=== PATIENT | female | born 1990 | race Caucasian/White ===

== ENCOUNTER 2016-12-01 23:19 | Emergency (ER) | payer OTHER ==
[~2016-12-01] VITALS: Ht 157.5 cm; Wt 77.1 kg
[2016-12-02 00:41] VITALS: BP 127/75
--- NOTE | 2016-12-02 01:52 | ED.ADGEN ---
Past Medical History Past Medical History: No Pertinent History Past Surgical History: No Surgical History Alcohol Use: Occasionally Drug Use: None Physician Documentation Physician Documentation I signed up to evaluate this patient, however upon entering the room the patient was nowhere to be found. The patient did not receive a medical screening exam and left the emergency department without being seen. CAN BROWN MD December 02, 2016 01:52
== END 2016-12-02 01:50 | disposition left against medical advice (07) ==
LOC: ER 12-02 00:11
DX: M25.532 Pain in left wrist (principal); F17.200 Nicotine dependence, unspecified, uncomplicated; Z53.21 Procedure and treatment not carried out due to patient leaving prior to being seen by health care provider
CPT/HCPCS: 99281

== ENCOUNTER 2016-12-18 11:25 | Emergency (ER) | payer OTHER ==
[~2016-12-18] VITALS: Ht 157.5 cm; Wt 76.2 kg
[2016-12-18 11:34] VITALS: BP 122/67
--- NOTE | 2016-12-18 11:56 | PHYS DOC ---
Past Medical History Past Medical History: No Pertinent History Past Surgical History: No Surgical History Alcohol Use: Occasionally Drug Use: None Adult General Chief Complaint Chief Complaint: EARACHE/EAR PAIN HPI HPI Patient is a 26 year old female presents to the emergency department with a history of URI last week or so. She states since the URI symptoms have resolved she is now having problems with her left ear. She states she has decreased hearing states it feels foggy. She denies drainage or discharge noted from the ear. She denies fever, chills, nausea or vomiting. Review of Systems Review of Systems Constitutional: Denies fever or chills [] Eyes: Denies change in visual acuity, redness, or eye pain [] HENT: Denies nasal congestion or sore throat. C/o left ear problems Respiratory: Denies cough or shortness of breath [] Cardiovascular: No additional information not addressed in HPI [] GI: Denies abdominal pain, nausea, vomiting, bloody stools or diarrhea [] : Denies dysuria or hematuria [] Musculoskeletal: Denies back pain or joint pain [] Integument: Denies rash or skin lesions [] Neurologic: Denies headache, focal weakness or sensory changes [] Endocrine: Denies polyuria or polydipsia [] Allergies Allergies Allergies Coded Allergies Type Severity Reaction Last Updated Verified No Known Drug Allergies 12/02/16 No Physical Exam Physical Exam Constitutional: Well developed, well nourished, no acute distress, non-toxic appearance. [] HENT: Normocephalic, atraumatic, bilateral external ears normal, oropharynx moist, no oral exudates, nose normal. Bilateral TM clear. Throat with redness noted, no exudate, no erythema noted. Eyes: PERRLA, EOMI, conjunctiva normal, no discharge. [] Neck: Normal range of motion, no tenderness, supple, no stridor. [] Cardiovascular:Heart rate regular rhythm, no murmur [] Lungs & Thorax: Bilateral breath sounds clear to auscultation [] Skin: Warm, dry, no erythema, no rash. [] Back: No tenderness Extremities: No tenderness, no cyanosis, no clubbing, ROM intact, no edema. [] Neurologic: Alert and oriented X 3, normal motor function, normal sensory function, no focal deficits noted. [] Psychologic: Affect normal, judgement normal, mood normal. [] Current Patient Data Vital Signs Vital Signs Date Time Temp Pulse Resp B/P (MAP) Pulse Ox O2 Delivery O2 Flow Rate FiO2 12/18/16 11:34 98.0 78 16 97 Room Air 98.0 EKG EKG [] Radiology/Procedures Radiology/Procedures [] Course & Med Decision Making Course & Med Decision Making Pertinent Labs and Imaging studies reviewed. (See chart for details) Patient was instructed to use Afrin twice a day for the next 3 days. Recommended Zyrtec. Patient will be discharged home in stable condition. Signs and symptoms to return to the emergency department has been provided. Patient agrees with discharge instructions, treatment regimen and followup recommendations. [] Dragon Disclaimer Dragon Disclaimer This electronic medical record was generated, in whole or in part, using a voice recognition dictation system. Departure Departure Impression: Primary Impression: Congestion of left ear Disposition: 01 HOME, SELF-CARE Condition: STABLE Referrals: MARJORIE ABURTO (PCP) Patient Instructions: Otalgia-Brief Additional Instructions: Activity as tolerated Afrin 1 spray to bilateral nares twice a day for THREE days only Zyrtec at night Drink plenty of fluids Followup with primary care provider in 3-5 days Return to emergency department as needed for signs and symptoms that become worse. DIAZ COULTER APRN Dec 18, 2016 11:56
== END 2016-12-18 12:01 | disposition home or self-care (01) ==
LOC: ER 11:25
DX: H93.8X2 Other specified disorders of left ear (principal)
CPT/HCPCS: 99281

== ENCOUNTER 2019-03-01 17:15 | Emergency (ER) | payer OTHER ==
[~2019-03-01] VITALS: Ht 157.5 cm; Wt 71.2 kg
[2019-03-01 17:50] VITALS: BP 153/98
[2019-03-01] MEDS ORDERED: FLUT9.9S NS (18:04)
[2019-03-01] MEDS ORDERED: CETI10TA16 PO (18:04)
--- NOTE | 2019-03-01 18:05 | PHYS DOC ---
Past Medical History Past Medical History: No Pertinent History Past Surgical History: No Surgical History Alcohol Use: Occasionally Drug Use: None Adult General Chief Complaint Chief Complaint: COUGH HPI HPI Patient is a 28 year old female who presents to the emergency room with complaints of a productive cough with chunks of clear sputum produced, and fatigue for the last 4 days. Patient states that her throat feels congested. She currently rates her discomfort a 4 out of 10 on the pain scale, there are no alleviating or exacerbating factors. Patient states she does smoke half a pack to a pack of cigarettes a day. ROS Patient denies any fever, ear pain, body aches, nausea, vomiting, diarrhea, abdominal pain, or back pain. She reports frequent throat clearing. She denies any dysuria, or back pain. All other ROS is neg unless otherwise noted in HPI. Review of Systems Review of Systems See Above Allergies Allergies Allergies Coded Allergies Type Severity Reaction Last Updated Verified No Known Drug Allergies 12/02/16 No Physical Exam Physical Exam See Above Constitutional: Well developed, well nourished, no acute distress, non-toxic appearance. [] HENT: Normocephalic, atraumatic, bilateral external ears normal, bilateral TMs normal, stone appearance of posterior pharynx without erythema, oropharynx moist, no oral exudates, nasal turbinates edematous and erythematous laterally Eyes: PERRLA, EOMI, conjunctiva normal, no discharge. [] Neck: Normal range of motion, no tenderness, supple, no stridor. [] Cardiovascular:Heart rate regular rhythm, no murmur [] Lungs & Thorax: Bilateral breath sounds clear to auscultation [] Skin: Warm, dry, no erythema, no rash. [] Extremities: No cyanosis, no clubbing, ROM intact, no edema. [] Neurologic: Alert and oriented X 3, no focal deficits noted. [] Psychologic: Affect normal, judgement normal, mood normal. [] EKG EKG [] Radiology/Procedures Radiology/Procedures [] Course & Med Decision Making Course & Med Decision Making Pertinent Labs and Imaging studies reviewed. (See chart for details) [] Dragon Disclaimer Dragon Disclaimer This electronic medical record was generated, in whole or in part, using a voice recognition dictation system. Departure Departure Impression: Primary Impression: Allergic rhinitis Disposition: HOME, SELF-CARE Condition: STABLE Referrals: NO PCP (PCP) Patient Instructions: Allergic Rhinitis Additional Instructions: Fill prescription(s) and use as directed. You may take Tylenol or ibuprofen as needed for pain/fever. Increase clear fluids. Avoid triggers such as smoke, fragrance, dust, and pollen. Recommend [id number] cough suppressants as needed for cough. Follow-up with your primary care doctor if symptoms persist and to have your thyroid levels rechecked. Scripts Fluticasone Propionate (Flonase Allergy Relief) 9.9 Ml [place].susp 2 SPRAYS NS DAILY for 30 Days, #1 BOTTLE Prov: GIRISH SANON APRN 03/01/19 Cetirizine Hcl (CETIRIZINE HCL) 10 Mg Tablet 1 TAB PO HS, #30 TAB 0 Refills Prov: GIRISH SANON APRN 03/01/19 Problem Qualifiers Primary Impression: Allergic rhinitis Allergic rhinitis trigger: unspecified Allergic rhinitis seasonality: unspecified Qualified Codes: J30.9 - Allergic rhinitis, unspecified GIRISH SANON APRN Mar 01, 2019 18:05
== END 2019-03-01 18:09 | disposition home or self-care (01) ==
LOC: ER 17:15
DX: J30.9 Allergic rhinitis, unspecified (principal); R53.83 Other fatigue
CPT/HCPCS: 99283

== ENCOUNTER 2019-03-13 17:54 | Emergency (ER) | payer OTHER ==
[~2019-03-13] VITALS: Ht 162.6 cm; Wt 71.2 kg
[~2019-03-13 17:54] MED LIST: CETI10TA16 PO; FLUT9.9S NS
[2019-03-13 17:59] VITALS: BP 122/72
[2019-03-13] MEDS ORDERED: DEXAMETHASONE 4 MG TABLET PO STA (18:21)
[2019-03-13] MEDS ORDERED: AZIT1PAC9 PO (18:33)
--- NOTE | 2019-03-13 18:34 | PHYS DOC ---
Past Medical History Past Medical History: Other Additional Past Medical Histor: hypothroidism during Past Surgical History: No Surgical History Alcohol Use: Occasionally Drug Use: None Adult General Chief Complaint Chief Complaint: COUGH HPI HPI Patient is a 28 year old female who presents with cough, congestion, runny nose, body aches has been ongoing for a week and a half. She states she's been using Flonase and Zyrtec over the last week her last not been helping. Denies any pain or any other symptoms at this time. Review of Systems Review of Systems Constitutional: Denies fever or chills [] Eyes: Denies change in visual acuity, redness, or eye pain [] HENT: Reports nasal congestion and sore throat [] Respiratory: Reports cough Cardiovascular: No additional information not addressed in HPI [] GI: Denies abdominal pain, nausea, vomiting, bloody stools or diarrhea [] : Denies dysuria or hematuria [] Musculoskeletal: Denies back pain or joint pain [] Integument: Denies rash or skin lesions [] Neurologic: Denies headache, focal weakness or sensory changes [] Endocrine: Denies polyuria or polydipsia [] Complete systems were reviewed and found to be within normal limits, except as documented in this note. Current Medications Current Medications Current Medications Medications (Trade) Dose Ordered Sig/Flip Start Time Stop Time Status Last Admin Dose Admin Dexamethasone (Decadron) 10 mg 1X STAT 03/13/19 18:21 03/13/19 18:22 UNV Allergies Allergies Allergies Coded Allergies Type Severity Reaction Last Updated Verified No Known Drug Allergies 12/02/16 No Physical Exam Physical Exam Constitutional: Well developed, well nourished, no acute distress, non-toxic appearance. [] HENT: Normocephalic, atraumatic, bilateral external ears normal, oropharynx moist, no oral exudates, nose normal. [] Eyes: PERRLA, EOMI, conjunctiva normal, no discharge. [] Neck: Normal range of motion, no tenderness, supple, no stridor. [] Cardiovascular:Heart rate regular rhythm, no murmur [] Lungs & Thorax: Bilateral breath sounds clear to auscultation [] Abdomen: Bowel sounds normal, soft, no tenderness, no masses, no pulsatile mass es. [] Skin: Warm, dry, no erythema, no rash. [] Back: No tenderness, no CVA tenderness. [] Extremities: No tenderness, no cyanosis, no clubbing, ROM intact, no edema. [] Neurologic: Alert and oriented X 3, normal motor function, normal sensory function, no focal deficits noted. [] Psychologic: Affect normal, judgement normal, mood normal. [] EKG EKG [] Radiology/Procedures Radiology/Procedures [] Course & Med Decision Making Course & Med Decision Making Pertinent Labs and Imaging studies reviewed. (See chart for details) Will give patient a steroid and since this has been ongoing for a week and a half and getting worse, will give Z-pack. Dragon Disclaimer Dragon Disclaimer This electronic medical record was generated, in whole or in part, using a voice recognition dictation system. Departure Departure Impression: Primary Impression: Upper respiratory infection with cough and congestion Disposition: HOME, SELF-CARE Condition: STABLE Referrals: NO PCP (PCP) Patient Instructions: Upper Respiratory Infection, Adult Additional Instructions: Thank you for visiting [facility]. We appreciate you trusting us with your care. If any additional problems come up don't hesitate to return to visit us. Please follow up with your primary care provider so they can plan additional care if needed and know about the problem that you had. If symptoms worsen come back to the Emergency Department. Any concerning symptoms that start such as chest pain, shortness of air, weakness or numbness on one side of the body, running high fevers or any other concerning symptoms return to the ER. You have been prescribed an antibiotic today to help fight your infection. Please take all of the antibiotic as directed. If after 48 hours the infection is not improving, please return for more care. If the infection worsens, return to ER for additional care. Scripts Azithromycin (AZITHROMYCIN PACKET) 1 Gm Packet 1 PACKET PO ONCE, #1 PACKET Prov: RICHARD JAMIL APRN 03/13/19 RICHARD JAMIL APRN Mar 13, 2019 18:34
== END 2019-03-13 18:40 | disposition home or self-care (01) ==
LOC: ER 17:54
DX: J06.9 Acute upper respiratory infection, unspecified (principal)
CPT/HCPCS: 99283; J8540

== ENCOUNTER 2019-05-07 08:28 | Emergency (ER) | payer OTHER ==
[~2019-05-07] VITALS: Ht 158.8 cm; Wt 71.2 kg
[~2019-05-07 08:28] MED LIST changes: +AZIT1PAC9 PO
[2019-05-07 09:20] VITALS: BP 136/93
[2019-05-07] MEDS ORDERED: IBUPROFEN 400 MG TABLET. PO ONE (09:45)
[2019-05-07] MEDS ORDERED: IBUP-1007 PO (09:59)
[2019-05-07] MEDS ORDERED: LIDO15SO2 MM (09:59)
--- NOTE | 2019-05-07 09:59 | PHYS DOC ---
Past Medical History Past Medical History: Other Additional Past Medical Histor: hypothroidism during Past Surgical History: No Surgical History Alcohol Use: Occasionally Drug Use: None Adult General Chief Complaint Chief Complaint: SORE THROAT HPI HPI Patient is a 28 year old female who presents with complaining of sore throat. Patient complaining of scratching feeling in her throat during eating for the last 3 days with mild cough and nasal congestion that fever and chills and nausea and vomiting. Patient had sick contacts with strep throat and because her father taking chemotherapy and radiation therapy wanted to make sure she doesn't have strep. Review of Systems Review of Systems Constitutional: Denies fever or chills [] Eyes: Denies change in visual acuity, redness, or eye pain [] HENT: Denies nasal congestion, reports sore throat [] Respiratory: Denies cough or shortness of breath [] Cardiovascular: No additional information not addressed in HPI [] GI: Denies abdominal pain, nausea, vomiting, bloody stools or diarrhea [] : Denies dysuria or hematuria [] Musculoskeletal: Denies back pain or joint pain [] Integument: Denies rash or skin lesions [] Neurologic: Denies headache, focal weakness or sensory changes [] Endocrine: Denies polyuria or polydipsia [] All other systems were reviewed and found to be within normal limits, except as documented in this note. Current Medications Current Medications Current Medications Medications (Trade) Dose Ordered Sig/Flip Start Time Stop Time Status Last Admin Dose Admin Ibuprofen (Motrin) 800 mg 1X ONCE 05/07/19 09:45 05/07/19 09:46 DC 05/07/19 09:44 800 MG Allergies Allergies Allergies Coded Allergies Type Severity Reaction Last Updated Verified No Known Drug Allergies 12/02/16 No Physical Exam Physical Exam Constitutional: Well developed, well nourished, no acute distress, non-toxic appearance. [] HENT: Normocephalic, atraumatic, bilateral external ears normal, oropharynx moist, pharyngeal erythema, no oral exudates, nose normal. [] Eyes: PERRLA, EOMI, conjunctiva normal, no discharge. [] Neck: Normal range of motion, no tenderness, supple, no stridor. [] Cardiovascular:Heart rate regular rhythm, no murmur [] Lungs & Thorax: Bilateral breath sounds clear to auscultation [] Extremities: No tenderness, no cyanosis, no clubbing, ROM intact, no edema. [] Neurologic: Alert and oriented X 3, normal motor function, normal sensory function, no focal deficits noted. [] Psychologic: Affect normal, judgement normal, mood normal. [] Current Patient Data Vital Signs Vital Signs Date Time Temp Pulse Resp B/P (MAP) Pulse Ox O2 Delivery O2 Flow Rate FiO2 05/07/19 09:20 98.5 92 18 136/93 (107) 99 Room Air 98.5 Lab Values Laboratory Tests Test 05/07/19 09:29 Group A Streptococcus Rapid Negative (NEGATIVE) EKG EKG [] Radiology/Procedures Radiology/Procedures [] Course & Med Decision Making Course & Med Decision Making Pertinent Labs reviewed. (See chart for details) Evaluation of patient in ER showed 28-year-old female patient complaining of sore throat. Patient had negative strep test and discharged home with diagnosis of acute viral tonsillitis. Dragon Disclaimer Dragon Disclaimer This electronic medical record was generated, in whole or in part, using a voice recognition dictation system. Departure Departure Impression: Primary Impression: Acute viral pharyngitis Disposition: HOME, SELF-CARE (at 0 [phone]) Condition: STABLE Referrals: NO PCP (PCP) Patient Instructions: Viral Pharyngitis Additional Instructions: Drink plenty of liquids Follow-up with your primary care physician in 3-5 days Return to ER if not getting better Take Tylenol and ibuprofen alternating as needed for pain Scripts Lidocaine HCl (Lidocaine HCl Viscous) 15 Ml Solution 15 ML MM QID PRN for PAIN, #120 MISC Prov: KADEN YANG MD 05/07/19 Ibuprofen (IBUPROFEN) 600 Mg Tablet 600 MG PO PRN Q6HRS PRN for PAIN, #20 TAB take with food or milk Prov: KADEN YANG MD 05/07/19 KADEN YANG MD May 07, 2019 09:59
== END 2019-05-07 10:16 | disposition home or self-care (01) ==
LOC: ER 08:28
DX: J02.8 Acute pharyngitis due to other specified organisms (principal); B97.89 Other viral agents as the cause of diseases classified elsewhere; R11.2 Nausea with vomiting, unspecified
CPT/HCPCS: 87070; 87880; 99283

== ENCOUNTER 2020-08-05 19:54 | Emergency (ER) | payer OTHER ==
[~2020-08-05] VITALS: Ht 157.5 cm; Wt 72.3 kg
[~2020-08-05 19:54] MED LIST changes: +IBUP-1007 PO; +LIDO20SO10 MM
[2020-08-05 20:38] LABS: BILIRUBIN,URINE NEGATIVE (NEG); CLARITY,URINE CLEAR; COLOR,URINE YELLOW; NITRITE,URINE NEGATIVE (NEG); PH,URINE 6.5 (<5.0-8.0); PROTEIN,URINE NEGATIVE (NEG-TRACE); UROBILINOGEN,URINE 0.2 mg/dL (0.2 mg/dL)
[2020-08-05] MEDS ORDERED: ACETAMINOPHEN 325 MG TABLET. PO ONE (20:45)
[2020-08-05] MEDS ORDERED: IV NORMAL SALINE 1000ML BAG 1,000 ML IV SCH (20:45)
[2020-08-05 20:46] LABS: BARBITURATES NEG (NEG); BENZODIAZEPINES NEG (NEG); CANNABINOIDS POS (NEG); COCAINE NEG (NEG); METHADONE NEG (NEG); OPIATES NEG (NEG); PHENCYCLIDINE NEG (NEG)
[2020-08-05 20:52] LABS: BASO % 0 % (0-3); EOS % 0 % (0-3); HEMATOCRIT 41.4 % (36.0-47.0); HEMOGLOBIN 14.4 g/dL (12.0-15.5); LYMPH # 2.3 x10^3/uL (1.0-4.8); LYMPH % 21 % (24-48); MEAN CORPUSCULAR HEMOGLOBIN 30 pg (25-35); MEAN CORPUSCULAR HGB CONC 35 g/dL (31-37); MEAN CORPUSCULAR VOLUME 85 fL (79-100); MONO # 0.7 x10^3/uL (0.0-1.1); MONO % 6 % (0-9); NEUT # 7.6 x10^3/uL (1.8-7.7); NEUT % 72 % (31-73); PLATELET COUNT 289 x10^3/uL (140-400); RED BLOOD COUNT 4.85 x10^6/uL (3.50-5.40); RED CELL DISTRIBUTION WIDTH 13.9 % (11.5-14.5); WHITE BLOOD COUNT 10.7 x10^3/uL (4.0-11.0)
[2020-08-05 20:53] LABS: BACTERIA,URINE MODERATE /HPF (0-FEW); RBC,URINE 0 /HPF (0-2)
[2020-08-05 20:54] LABS: AMPHETAMINE/METHAMPHETAMINE NEG (NEG)
[2020-08-05 21:01] LABS: CALCIUM 9.1 mg/dL (8.5-10.1); CREATININE 0.7 mg/dL (0.6-1.0); GFR 100.4; POTASSIUM 3.1 mmol/L (3.5-5.1)
[2020-08-05 21:09] LABS: ALBUMIN 4.1 g/dL (3.4-5.0); ALBUMIN/GLOBULIN RATIO 1.1 (1.0-1.7); TOTAL BILIRUBIN 0.2 mg/dL (0.2-1.0)
--- NOTE | 2020-08-05 21:46 | RAD ---
Obstetric ultrasound less than 14 weeks, transabdominal and transvaginal: Reason for examination: Abdominal pain with spotting. History of 2 miscarriages. No OB Doctor. Transabdominally, the uterus measures 8.7 x 4.6 x 6.1 cm in greatest dimensions. There appears to be a gestational sac within the endometrial cavity. The bladder is not optimally distended. Right ovary shows good vascular flow and measures 2.1 x 1.6 x 2.1 cm in greatest dimension. Left ovary shows norm al vascular flow and measures 2.5 x 3.0 x 1.9 cm in greatest dimension and appears to contain a 1.2 x 1.5 x 1 cm cystic lesion possibly a corpus luteal cyst. Transvaginally, the uterus shows an intrauterine gestational sac with a normal contour. Yolk sac is i dentified a pole was not seen. The gestational sac has a mean diameter of 1.74 cm corresponding to gestational age of 6 weeks 4 days. This would correspond to estimated date of confinement of 03/27 which corresponds adequately with clinical dates. The left ovary contains a cyst which is measu red at 1.2 x 1.2 x 1 cm in greatest dimension. IMPRESSION: Intrauterine gestational sac containing a yolk sac but no pole is identified. Gestational sac s ize corresponds with a gestational age of approximately 6 weeks 4 days with estimated date of confine ment of 03/27/2021 which corresponds to clinical dates. 1.2 x 1.2 x 1 cm left ovarian cyst possibly a corpus luteal cyst. Recommend clinical correlation and ultrasound follow-up. Electronically signed by: Alexandria Babcock MD (08/05/2020 9:38 PM) [facility]
--- NOTE | 2020-08-05 21:49 | PHYS DOC ---
Past Medical History Past Medical History: Other Additional Past Medical Histor: hypothroidism during , 2 miscarriages Past Surgical History: No Surgical History Smoking Status: Current Every Day Smoker Alcohol Use: Occasionally Drug Use: None General Adult EDM: Chief Complaint: ABDOMINAL PAIN IN HPI: HPI: Patient is a 29 year old female who presents with mid abdominal sharp shooting pains and spotting that started this evening about 35 minutes prior to arrival. She rates the pain 7-10. She states it is dull ache some but is still there. She states that her last menstrual period is June 24. She states she has no OB doctor. She states she has not been seen by an OB. She has had a past history of 2 miscarriages and 2 live births. Patient denies any recent believe that she has any sexually transmitted diseases. She denies any other abnormal vaginal discharge or itching. Patient not taken any medication for her pain. Review of Systems: Review of Systems: Constitutional: Denies fever or chills. [] Eyes: Denies change in visual acuity. [] HENT: Denies nasal congestion or sore throat. [] Respiratory: Denies cough or shortness of breath. [] Cardiovascular: Denies chest pain or edema. [] GI: + Generalized mid abdominal sharp shooting abdominal pain, denies nausea, vomiting, bloody stools or diarrhea. [] : Denies dysuria. + Vaginal spotting [] Musculoskeletal: Denies back pain or joint pain. [] Integument: Denies rash. [] Neurologic: Denies headache, focal weakness or sensory changes. [] Endocrine: Denies polyuria or polydipsia. [] Lymphatic: Denies swollen glands. [] Psychiatric: Denies depression or anxiety. [] Heart Score: Risk Factors: Risk Factors: DM, Current or recent (<one month) smoker, HTN, HLP, family history of CAD, obesity. Risk Scores: Score 0 - 3: 2.5% MACE over next 6 weeks - Discharge Home Score 4 - 6: 20.3% MACE over next 6 weeks - Admit for Clinical Observation Score 7 - 10: 72.7% MACE over next 6 weeks - Early Invasive Strategies Current Medications: Current Medications Medications (Trade) Dose Ordered Sig/Flip Start Time Stop Time Status Last Admin Dose Admin Acetaminophen (Tylenol) 650 mg 1X ONCE 08/05/20 20:45 08/05/20 20:46 DC 08/05/20 20:39 650 MG Sodium Chloride 1,000 ml @ 1,000 mls/hr Q1H 08/05/20 20:45 08/05/20 21:44 DC 08/05/20 20:40 1,000 MLS/HR Allergies: Allergies: Allergies Coded Allergies Type Severity Reaction Last Updated Verified No Known Drug Allergies 12/02/16 No Physical Exam: PE: Constitutional: Well developed, well nourished, no acute distress, non-toxic appearance. [] HENT: Normocephalic, atraumatic, bilateral external ears normal, oropharynx moist, no oral exudates, nose normal. [] Eyes: PERRLA, EOMI, conjunctiva normal, no discharge. [] Neck: Normal range of motion, no tenderness, supple, no stridor. [] Cardiovascular:Heart rate regular rhythm, no murmur [] Lungs & Thorax: Bilateral breath sounds clear to auscultation [] Abdomen: Bowel sounds normal, soft, no tenderness, no masses, no pulsatile masses. [] Skin: Warm, dry, no erythema, no rash. [] Back: No tenderness, no CVA tenderness. [] Extremities: No tenderness, no cyanosis, no clubbing, ROM intact, no edema. [] Neurologic: Alert and oriented X 3, normal motor function, normal sensory function, no focal deficits noted. [] Psychologic: Affect normal, judgement normal, mood normal. Normal physical exam [] Current Patient Data: Labs: Laboratory Tests Test 08/05/20 19:57 08/05/20 20:04 08/05/20 20:24 Urine Collection Type Unknown Urine Color Yellow Urine Clarity Clear Urine pH 6.5 (<5.0-8.0) Urine Specific [place] 1.025 (1.000-1.030) Urine Protein Negative mg/dL (NEG-TRACE) Urine Glucose (UA) Negative mg/dL (NEG) Urine Ketones (Stick) Negative mg/dL (NEG) Urine Blood Negative (NEG) Urine Nitrite Negative (NEG) Urine Bilirubin Negative (NEG) Urine Urobilinogen Dipstick 0.2 mg/dL (0.2 mg/dL) Urine Leukocyte Esterase Small (NEG) Urine RBC 0 /HPF (0-2) Urine WBC 1-4 /HPF (0-4) Urine Squamous Epithelial Cells Many /LPF Urine Bacteria Moderate /HPF (0-FEW) Urine Mucus Mod /LPF Urine Opiates Screen Neg (NEG) Urine Methadone Screen Neg (NEG) Urine Barbiturates Neg (NEG) Urine Phencyclidine Screen Neg (NEG) Urine Amphetamine/Methamphetamine Neg (NEG) Urine Benzodiazepines Screen Neg (NEG) Urine Cocaine Screen Neg (NEG) Urine Cannabinoids Screen Pos (NEG) Urine Ethyl Alcohol Neg (NEG) POC Urine HCG, Qualitative Hcg positive (Negative) White Blood Count 10.7 x10^3/uL (4.0-11.0) Red Blood Count 4.85 x10^6/uL (3.50-5.40) Hemoglobin 14.4 g/dL (12.0-15.5) Hematocrit 41.4 % (36.0-47.0) Mean Corpuscular Volume 85 fL (79-100) Mean Corpuscular Hemoglobin 30 pg (25-35) Mean Corpuscular Hemoglobin Concent 35 g/dL (31-37) Red Cell Distribution Width 13.9 % (11.5-14.5) Platelet Count 289 x10^3/uL (140-400) Neutrophils (%) (Auto) 72 % (31-73) Lymphocytes (%) (Auto) 21 % (24-48) L Monocytes (%) (Auto) 6 % (0-9) Eosinophils (%) (Auto) 0 % (0-3) Basophils (%) (Auto) 0 % (0-3) Neutrophils # (Auto) 7.6 x10^3/uL (1.8-7.7) Lymphocytes # (Auto) 2.3 x10^3/uL (1.0-4.8) Monocytes # (Auto) 0.7 x10^3/uL (0.0-1.1) Eosinophils # (Auto) 0.0 x10^3/uL (0.0-0.7) Basophils # (Auto) 0.0 x10^3/uL (0.0-0.2) Maternal Serum HCG Beta Subunit 31756 mIU/mL (0-5) H Sodium Level 141 mmol/L (136-145) Potassium Level 3.1 mmol/L (3.5-5.1) L Chloride Level 106 mmol/L (98-107) Carbon Dioxide Level 24 mmol/L (21-32) Anion Gap 11 (6-14) Blood Urea Nitrogen 8 mg/dL (7-20) Creatinine 0.7 mg/dL (0.6-1.0) Estimated GFR (Cockcroft-Gault) 100.4 BUN/Creatinine Ratio 11 (6-20) Glucose Level 91 mg/dL (70-99) Calcium Level 9.1 mg/dL (8.5-10.1) Total Bilirubin 0.2 mg/dL (0.2-1.0) Aspartate Amino Transferase (AST) 18 U/L (15-37) Alanine Aminotransferase (ALT) 29 U/L (14-59) Alkaline Phosphatase 64 U/L (46-116) Total Protein 8.0 g/dL (6.4-8.2) Albumin 4.1 g/dL (3.4-5.0) Albumin/Globulin Ratio 1.1 (1.0-1.7) Lipase 40 U/L (73-393) L Laboratory Tests 08/05/20 20:24 Laboratory Tests 08/05/20 20:24 Vital Signs: Vital Signs Date Time Temp Pulse Resp B/P (MAP) Pulse Ox O2 Delivery O2 Flow Rate FiO2 08/05/20 20:25 97.8 117 15 161/77 (105) 98 Room Air 97.8 EKG: EKG: [] Radiology/Procedures: Radiology/Procedures: [] Impression: [facility] [address] [facility] [place] [address] IMAGING REPORT Signed PATIENT: FERNANDEZ KNOX RACCOUNT: [id number] : 1990 LOCATION: ER AGE: 29 SEX: F EXAM STATUS: REG ER ORD. PHYSICIAN: DIAZ MONTERO APRN REASON: abd pain with spotting, hx 2 misscarriages, no OB doctor PROCEDURE: OB <14 WKS W/TV Obstetric ultrasound less than 14 weeks, transabdominal and transvaginal: Reason for examination: Abdominal pain with spotting. History of 2 miscarriages. No OB Doctor. Transabdominally, the uterus measures 8.7 x 4.6 x 6.1 cm in greatest dimensions. There appears to be a gestational sac within the endometrial cavity. The bladder is not optimally distended. Right ovary shows good vascular flow and measures 2.1 x 1.6 x 2.1 cm in greatest dimension. Left ovary shows normal vascular flow and measures 2.5 x 3.0 x 1.9 cm in greatest dimension and appears to contain a 1.2 x 1.5 x 1 cm cystic lesion possibly a corpus luteal cyst. Transvaginally, the uterus shows an intrauterine gestational sac with a normal contour. Yolk sac is identified a pole was not seen. The gestational sac has a mean diameter of 1.74 cm corresponding to gestational age of 6 weeks 4 days. This would correspond to estimated date of confinement of 03/27/2021 which corresponds adequately with clinical dates. The left ovary contains a cyst which is measured at 1.2 x 1.2 x 1 cm in greatest dimension. IMPRESSION: Intrauterine gestational sac containing a yolk sac but no pole is identified. Gestational sac size corresponds with a gestational age of approximately 6 weeks 4 days with estimated date of confinement of 03/27/2021 which corresponds to clinical dates. 1.2 x 1.2 x 1 cm left ovarian cyst possibly a corpus luteal cyst. Recommend clinical correlation and ultrasound follow-up. Electronically signed by: Latoya Galvan MD (08/05/2020 9:38 PM) [facility] DICTATED and SIGNED BY: LATOYA GALVAN MD DATE: 08/05/[id number] 0 Course & Med Decision Making: Course & Med Decision Making Pertinent Labs and Imaging studies reviewed. (See chart for details) See HPI. Alert and oriented x4. Ambulatory with a steady gait. Abdomen is soft and nontender. Skin pink warm and dry. Patient's urine looks infected. Drug screen shows marijuana use. Otherwise blood work is unremarkable. 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 Ultrasound shows no acute findings. [] Dragon Disclaimer: Dragon Disclaimer: This electronic medical record was generated, in whole or in part, using a voice recognition dictation system. Departure Departure Impression: Primary Impression: Abdominal pain affecting Additional Impressions: Vaginal spotting Bacterial vaginosis in Disposition: 01 DC HOME SELF CARE/HOMELESS Condition: STABLE Referrals: NO PCP (PCP) Patient Instructions: Abdominal Pain During , Bacterial Vaginosis, [id number], Vaginal Bleeding During , [id number] Additional Instructions: Follow-up with an OB doctor. I referred you to a [facility]. Drink plenty of fluids. Begin taking a vitamin. Do not smoke marijuana or cigarettes. If you begin bleeding and going through more than 1 pad an hour or having abdominal pain return to the emergency room. Scripts Metronidazole (METRONIDAZOLE) 500 Mg Tablet 1 TAB PO BID for 7 Days, #14 TAB 0 Refills Prov: DIAZ MONTERO APRN 08/05/20 Cephalexin (CEPHALEXIN) 500 Mg Capsule 1 CAP PO BID for 7 Days, #14 CAP Prov: DIAZ MONTERO APRN 08/05/20 DIAZ MONTERO APRN Aug 05, 2020 21:48
[2020-08-05 22:19] VITALS: BP 121/59
[2020-08-05] MEDS ORDERED: CEPH500C PO (22:23)
[2020-08-05] MEDS ORDERED: METR-34 PO (22:23)
[2020-08-07 22:08] LABS: GC PROBE Negative (Negative)
== END 2020-08-05 22:43 | disposition home or self-care (01) ==
LOC: ER 19:54
DX: O46.91 Antepartum hemorrhage, unspecified, first trimester (principal); N76.0 Acute vaginitis; B96.89 Other specified bacterial agents as the cause of diseases classified elsewhere; O34.81 Maternal care for other abnormalities of pelvic organs, first trimester; N83.202 Unspecified ovarian cyst, left side; O99.331 Smoking (tobacco) complicating pregnancy, first trimester; Z3A.01 Less than 8 weeks gestation of pregnancy
CPT/HCPCS: 36415; 76801; 76817; 80053; 80307; 81001; 81025; 83690; 84702; 85025; 86850; 86900; 86901; 87086; 87491; 87591; 96360; 96361; 99285; J7030; Q0111; 87077; 87186